=== PATIENT | male | born 1995 | race Caucasian/White ===

== ENCOUNTER 2020-10-07 10:24 | Emergency (ER) | payer MEDICAID, SELFPAY ==
[2020-10-07 10:30] VITALS: BP 124/71; PULSE 118; RESP 22; TEMP 37.3; O2SAT 98; BMI 22.6
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
[2020-10-07 11:06] VITALS: BP 124/71; PULSE 118; RESP 22; TEMP 37.3; O2SAT 98
[2020-10-10 07:09] LABS: Neisseria gonorrhoeae, NAA Negative (Negative)
== END 2020-10-07 11:10 | disposition home or self-care (01) ==
PROVIDERS: Emergency Provider Nurse Practitioner
DX: Z20.2 Contact with and (suspected) exposure to infections with a predominantly sexual mode of transmission (principal); K21.9 Gastro-esophageal reflux disease without esophagitis; Z88.5 Allergy status to narcotic agent; F17.210 Nicotine dependence, cigarettes, uncomplicated
CPT/HCPCS: 87491; 87591; 96372; 99202; G0463

== ENCOUNTER 2020-11-19 00:02 | Emergency (ER) | payer MEDICAID, SELFPAY ==
[2020-11-19 00:11] VITALS: BP 158/71; PULSE 78; RESP 17; TEMP 36.7; O2SAT 98; BMI 24.0
[2020-11-19 00:14] VITALS: BMI 24.0
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
--- NOTE | 2020-11-19 00:20 | PC.NURSE ---
ALLOWED BACK INTO ROOM AT THIS TIME
--- NOTE | 2020-11-19 01:03 | PC.NURSE ---
CT RESULTED. DISC MADE.
--- NOTE | 2020-11-19 01:14 | PC.NURSE ---
PAGED DR BRITTON
--- NOTE | 2020-11-19 01:15 | PC.NURSE ---
DR BRITTON RETURNED CALL
[2020-11-19 01:19] VITALS: BP 145/71; PULSE 75; RESP 16; TEMP 36.8; O2SAT 98
== END 2020-11-19 01:26 | disposition home or self-care (01) ==
PROVIDERS: Emergency Provider Emergency Medicine
DX: S02.2XXA Fracture of nasal bones, initial encounter for closed fracture (principal); Y04.0XXA Assault by unarmed brawl or fight, initial encounter; Y09 Assault by unspecified means
CPT/HCPCS: 70450; 70486; 72125; 90714; 99282

== ENCOUNTER 2024-05-01 10:50 | Emergency (ER) | payer MEDICAID, SELFPAY ==
[2024-05-01 11:17] VITALS: BP 112/64; PULSE 71; RESP 18; TEMP 37; O2SAT 100; BMI 24.3
--- NOTE | 2024-05-01 11:25 | EXP.UTC ---
Discharge Plan Disposition Patient Disposition: Home, Self-Care Condition: Good Prescriptions Prescriptions: No Action omeprazole 20 mg tablet,disintegrat, delay rel PO cephalexin 500 MG capsule 500 mg PO TID Qty: 30 0RF Referrals Follow up/Referrals: Provider,MD Meño [Primary Care Provider] - See instructions Driss Miguel MD [Staff Physician] - 05/02/24 9:30 am Activity Restrictions/Add. Instructions Additional Instructions/Restrictions: A sitz bath is?a warm water bath you sit in to relieve discomfort in your perineal region. Soaking this area in warm water relaxes your anal sphincter, which helps increase blood flow through your anal tissues. This promotes healing and reduces the pain, itching and irritation 20-minute sitz bath?after each bowel movement and two or three times a day in addition. Take care to gently pat the anal area dry afterward; do not rub or wipe hard. Use your prescribed Suppository as it was prescribed Follow up appointment tomorrow with [facility] as scheduled Clinical Impressions Clinical Impression: Hemorrhoid Stand Alone Forms Stand Alone Forms: Work/School Release Instructions Patient Instructions: DI for Hemorrhoids Print Language Print Language: Albanian Discharge ED Provider: Yesi Garg [facility] General Stated complaint: abd pain and interal anal pain Mode of Arrival: Ambulatory Source of Information: Patient Limitations: No Limitations Time Seen by Provider: 05/01/24 11:25 Description of Symptoms (Recalled from Triage Doc. by RN): Patient reports hemrrhoids. States that he was seen at [facility] yesterday and now they are worse and he is in a lot of pain. HEENT Symptoms (Recalled from RN notes): No Resp Symptoms (Recalled from RN notes): No Skin Symptoms (Recalled from RN notes): No MS Symptoms (Recalled from RN notes): No Functional Status (Recalled from RN notes): wnl History of Present Illness Provider Complaint: Patient states that he has been having issues with hemorrhoids for awhile and he went to [facility] yesterday and they checked him and they cut the hemorrhoid but they said nothing came out and since then he has been having pain States that they told him he needed to see someone in Surgery but didnt set him an appointment, states today he is still hurting and came her requesting to get appointment with General Surgery Related Data Home Medications ?Medication ?Instructions ?Recorded ?Confirmed omeprazole 20 mg delayed mg PO 05/15/19 05/17/19 release,disintegrating tablet Previous Rx's ?Medication ?Instructions ?Recorded cephalexin 500 mg capsule 500 mg PO TID #30 caps 11/19/20 Allergies Allergy/AdvReac Type Severity Reaction Status Date / Time acetaminophen [From Lortab] Allergy Mild Verified 05/17/19 13:24 hydrocodone [From Lortab] Allergy Mild Verified 05/17/19 13:24 Worker's Comp Is this a Worker's Comp case?: No PFSH COUNTS INCLUDE 234 BEDS AT THE [facility] Disclaimer: The information contained in this section may have been updated after the patient was seen, as this information can be updated by other users. Social History Smoking Status: Current every day smoker tobacco type: cigarettes packs per day: 1 second hand exposure: No alcohol intake: never substance use type: methamphetamine current occupational status: other Travel in the last 8 weeks: None household members: family housing: house ROS Obtained: Yes All systems reviewed & no additional complaints except as documented and Yes Systems reviewed as appropriate & no additional complaints except as documented Constitutional Constitutional: Reports system reviewed and no additional complaints, except as documented and Reports as per HPI Cardiovascular Cardiovascular: Reports system reviewed and no additional complaints, except as documented and Reports as per HPI Respiratory Respiratory: Reports system reviewed and no additional complaints, except as documented and Reports as per HPI Gastrointestinal Gastrointestingal: Reports system reviewed and no additional complaints, except as documented and as per HPI Musculoskeletal Musculoskeletal: Reports system reviewed and no additional complaints, except as documented and Reports as per HPI Integumentary/Breasts Skin/Breast: Reports system reviewed and no additional complaints, except as documented and Reports as per HPI Comments: Hemorrhoid pain, reports they attempted to chilango it at [facility] but told him nothing came out and it is very sore today Physical Exam General General appearance: alert and in no apparent distress ENT ENT exam: Present mucous membranes moist Respiratory Respiratory exam: Present normal lung sounds bilaterally; Absent respiratory distress or wheezes Cardiovascular Cardiovascular exam: Present regular rate, normal rhythm and normal heart sounds Rectal Exam Rectal exam: Present hemorrhoids (hemorrhoid noted right side, no bleeding observed) Neurological Exam Neurological exam: Present alert, oriented X3 and normal gait Medical Decision Making Anthony Inquiry Pt receiving controlled substance: No Anthony was queried for this patient: No Vital Signs: 05/01/24 11:17 Temperature 98.6 F Temperature Source Oral Pulse Rate [Radial] 71 Respiratory Rate 18 Blood Pressure [Right Arm] 112/64 Blood Pressure Mean [Right Arm] 80 Blood Pressure Source [Right Arm] Automatic Cuff Blood Pressure Position [Right Arm] Sitting 02 Sat by Pulse Oximetry 100 Oxygen Delivery Method Room Air Physician Consults Physician Consulted: General Surgery Time: 11:42 Reason -: Surgical Eval/Care Comment/Response: Spoke with FIDELIA in Surgical Clinic and informed her of patient request to see General Surgery due to Hemorrhoids, patient was given appointment for 05/02/[address] Miguel Medical Decision Narrative: Patient requesting to get appointment with General Surgery for evaluation of hemorrhoids Called [facility] Surgery Clinic and spoke with FIDELIA informed her that patient was requesting to see General Surgery and requesting appointment and he was given appointment from tomorrow 05/02/[address] Miguel
[2024-05-01 12:05] VITALS: BP 112/64; PULSE 71; RESP 18; TEMP 37; O2SAT 100
== END 2024-05-01 12:06 | disposition home or self-care (01) ==
PROVIDERS: Emergency Provider Nurse Practitioner
DX: K64.9 Unspecified hemorrhoids (principal)
CPT/HCPCS: 99203; 99212; G0463